=== PATIENT | male | born 1950 | race Caucasian/White ===

== ENCOUNTER → 2024-04-27 14:29 | Outpatient (REF) | payer MEDICARE, OTHER, SELFPAY | LOC: HWRAD 14:29 | PROVIDERS: ATTENDING PHYSICIAN Student in an Organized Health Care Education/Training Program; REFERRING PHYSICIAN Family Medicine | DX: R10.30 Lower abdominal pain, unspecified (principal); R22.42 Localized swelling, mass and lump, left lower limb | CPT/HCPCS: 76870; 76882; 93976 ==